=== PATIENT | male | born 1955 | race Caucasian/White ===

== ENCOUNTER → 2016-12-14 | Outpatient (CLI) | payer BC ==
[~2016-12-14] MED LIST: NAPR375T PO; OXYC-533 PO
--- NOTE | 2016-12-14 09:26 | DI ---
Indication: ITS.REASON: M54.5 LOW BACK PAIN with bilateral leg numbness PROCEDURE: MRI LUMBAR SPINE W/O CONTRAST: Encounter: Initial Comparison: None Technique: Multiplanar multisequence MR imaging of the lumbar spine was performed without contrast. Findings: Alignment of the lumbar spine is straightened with some loss of the normal lumbar lordosis. Vertebral body heights are maintained. No acute fractures. Conus medullaris terminates normally at L1. Paraspinal soft tissues show bilateral renal cysts. Segmental analysis: L1-L2: Central disk extrusion extending usp up the L1 vertebra facet disease contributing to mild central canal stenosis. No neural foraminal stenosis. L2-L3: Moderate central disk protrusion with an annular tear and high intensity zone with degenerative facet disease causing severe central canal stenosis. Mild left neural foraminal narrowing. No right foraminal stenosis. L3-L4: Right central disk extrusion extending along the right lateral recess with degenerative facet disease causing severe central canal stenosis and compression of the thecal sac. There is also disk protrusion impressing on the exiting right L3 nerve root with severe neural foraminal stenosis. Mild to moderate left neural foraminal stenosis. L4-L5: Broad-based disk bulge with a superimposed central disk extrusion with degenerative facet disease is contributes to severe central canal stenosis. Mild right and moderate left neural foraminal stenosis. There is some disk material abutting the exiting left L4 nerve root. L5-S1: Central disk protrusion superimposed on the broad-based disk bulge contributes to mild central canal stenosis. Degenerative facet disease resulting in moderate right and mild left neural foraminal stenosis. Impression: Severe degenerative disk disease as above with large disk extrusions resulting in severe central canal stenosis. Spinal surgical consultation is recommended. .
== END ==
LOC: IMA 08:10
PROVIDERS: ATTEND Family Medicine
DX: M48.06 Spinal stenosis, lumbar region (principal); M48.07 Spinal stenosis, lumbosacral region; M47.26 Other spondylosis with radiculopathy, lumbar region; M51.16 Intervertebral disc disorders with radiculopathy, lumbar region; M51.17 Intervertebral disc disorders with radiculopathy, lumbosacral region; M54.5 Low back pain

== ENCOUNTER 2017-01-07 05:54 | Day surgery (SDC) | payer BC ==
[~2017-01-07] VITALS: Ht 181.6 cm; Wt 128.8 kg
[~2017-01-07 05:54] MED LIST changes: +CHOL100018 PO; +GLUC100015 PO; +MULT-933 PO; -NAPR375T PO; -OXYC-533 PO
--- OUTSIDE RECORDS SUMMARY | 2017-01-07 05:58 | XMS REPORT | Continuity of Care Document ---
Demographics Preferred Language Unknown Marital Status Unknown Holiness Affiliation Unknown Race Unknown Ethnic Group Unknown Author Author [facility] Organization [facility] Address Unknown Phone Unavailable Allergies Active Description Code Type Severity Reaction Onset Reported/Identified Relationship to Patient Clinical Status Yes No Known Medication Allergies NKMA N/A N/A 12/25/2014 Medications Problems Procedures Results Encounters ACCT No. Visit Date/Time Discharge Status Pt. Type Provider Facility Loc./Unit Complaint [id number] 07/14/2016 14:06:00 Document Registration
--- OUTSIDE RECORDS SUMMARY | 2017-01-07 05:58 | XMS REPORT | Continuity of Care Document ---
Author Author [facility] Organization [facility] Address Unknown Phone Unavailable Support Name Relationship Address Phone EBENEZER SUMNER MD Caregiver [address] [place] [address] [place] [phone] KANNAN LUJAN MD Caregiver [address] [place] [address] [place] [phone] MALVIN LOBATO MD Caregiver [address] [place] [address] [place] [phone] MILLY PRUITT Next Of Kin [address] [place] [address] Insurance Providers Payer Name Policy Number Subscriber Name Relationship [employer] [id number] Elie Pruitt 19 Self Advance Directives Directive Response Recorded Date/Time Advanced Directives Type None 11/04/14 3:18am Problems Medical Problems Problem Onset Date Status RUQ pain Unknown Active Cholelithiasis Unknown Active RUQ pain Unknown Active Medications Medication Dose Route Sig Days/Qty Instructions Order Date Discontinued Date Status Naproxen Sodium 1 - 2 Tab PO NEEDED 02/24/10 Active Oxycodone HCl/Acetaminophen 5 Mg PO Q4H PRN PAIN 30 Qty Take 1 tablet, by mouth, every 4 hours as needed for pain. 11/04/14 Active Ondansetron 4 Mg PO Q6H/0300,0900,1500,2100 For NAUSEA &/OR VOMITING 15 Qty 11/04/14 Active Tramadol HCl 50 Mg PO Q6H/0300,0900,1500,2100 For PAIN 30 Qty Take 1 tablet, by mouth, every 6 hours. 11/04/14 Active Social History Social History Problem Response Recorded Date/Time Chewing Tobacco Status No 11/04/2014 3:25am Hx Substance Use No 11/04/2014 3:25am Hx Alcohol Use Y social 11/04/2014 3:25am Query Response Start Date Stop Date Smoking Status Never smoker Hospital Discharge Instructions No hospital discharge instructions. Plan of Care No plan of care. Functional Status Query Response Date Recorded Physical Hygiene Self November 04, 2014 3:25am Disabilities Visual November 04, 2014 3:25am Devices Used Glasses November 04, 2014 3:25am Dressing Self November 04, 2014 3:25am Ambulation Self November 04, 2014 3:25am Diet Self November 04, 2014 3:25am Mental Status Alert Oriented November 04, 2014 6:05am Disabilities Visual November 04, 2014 3:25am Devices Used Glasses November 04, 2014 3:25am Physical Hygiene Self November 04, 2014 3:25am Dressing Self November 04, 2014 3:25am Ambulation Self November 04, 2014 3:25am Diet Self November 04, 2014 3:25am Allergies, Adverse Reactions, Alerts Allergen Type Severity Reaction Status Last Updated No Known Drug Allergies Allergy Unknown NONE Active 02/24/10 Immunizations Name Given Type Hx Influenza Vaccination No Historical Hx Pneumococcal Vaccination No Historical Hx Influenza Vaccination No Historical Hx Tetanus Diptheria N UNKNOWN Historical Vital Signs Acute Vital Signs Vital Response Date/Time Temperature (Fahrenheit) 98.9 deg F (96.8 - 99.1) Temperature (Calculated Celsius) 37.55596 degrees C (36.0 - 37.3) Pulse Rate (adult) 76 bpm (60 - 100) Respiratory Rate 16 breaths/min (10 - 20) O2 Sat by Pulse Oximetry 100 % (90 - 100) Blood Pressure 128/80 mm Hg Height 6 ft 0 in Weight 286 lb Body Mass Index 38.0 kg/m^2 Results Test Source Date Result Interp. Ref. Range Comments Alanine Aminotransferase (ALT/SGPT) November 04, 2014 4:07am 65 U/L N 21 -72 Albumin November 04, 2014 4:07am 4.2 G/DL N 3.5-5.0 Albumin/Globulin Ratio November 04, 2014 4:07am 1.4 RATIO N 1.1-2.2 Alkaline Phosphatase November 04, 2014 4:07am 108 U/L N 38-126 Amylase Level November 04, 2014 4:07am 69 U/L N 30-110 Anion Gap November 04, 2014 4:07am 11 MEQ/L N 5-15 Aspartate Amino Transf (AST/SGOT) November 04, 2014 4:07am 34 U/L N 17- 59 BUN/Creatinine Ratio November 04, 2014 4:07am 29 RATIO H 6-26 Basophils # (Auto) November 04, 2014 4:07am 0.0 T/MM3 N 0-0.2 Basophils (%) (Auto) November 04, 2014 4:07am 0.3 % N 0-2 Blood Urea Nitrogen November 04, 2014 4:07am 23.0 MG/DL H 9-20 Calcium Level November 04, 2014 4:07am 9.9 MG/DL N 8.4-10.2 Calculated Osmolality November 04, 2014 4:07am 276 MOSM/KG N 261-280 Carbon Dioxide Level November 04, 2014 4:07am 26 MEQ/L N 22-30 Chemistry Specimen Hemolysis November 04, 2014 4:07am < 15 0-25 0-25 : No Hemolysis.26-70: Slight Hemolysis - can falsely elevate K and Urine Protein. 71-285: Moderate Hemolysis - can falsely elevate K, Troponin I, CA 19-9, PTH, CSF GLucose, and Urine Protein, and can falsely decrease Phenytoin. 286-999: Gross Hemolysis - can falsely elevate K, Troponin I, CA 19-9, PTH, CSF Glucose, and Urine Protine, and can falsely decrease Phenytoin. Recommend specimen recollection. Chloride Level November 04, 2014 4:07am 104 MEQ/L N 98-107 Creatinine November 04, 2014 4:07am 0.8 MG/DL N 0.8-1.5 Eosinophils # (Auto) November 04, 2014 4:07am 0.2 T/MM3 N 0-0.5 Eosinophils (%) (Auto) November 04, 2014 4:07am 2.1 % N 0-4 Globulin November 04, 2014 4:07am 3.0 G/DL N 2.4-3.6 Glomerular Filtration Rate Calc November 04, 2014 4:07am 99 - Glucose Level November 04, 2014 4:07am 125 MG/DL H 75-110 Hematocrit November 04, 2014 4:07am 46.3 % N 41-53 Hemoglobin November 04, 2014 4:07am 16.4 GM/DL N 13.5-17.5 Icterus Index November 04, 2014 4:07am < 2 0-7 Immature Granulocyte # (Auto) November 04, 2014 4:07am 0.02 T/MM3 N 0.00 -0.03 Immature Granulocyte % (Auto) November 04, 2014 4:07am 0.3 % N 0.0-0.5 Lab Scanned Report November 16, 2011 10:01pm LAB TEST FORM REQUEST [id number] - Lipase November 04, 2014 4:07am 85 U/L N 23-300 Lymphocytes # (Auto) November 04, 2014 4:07am 2.7 T/MM3 N 1-4.8 Lymphocytes (%) (Auto) November 04, 2014 4:07am 34.8 % N 23-45 Mean Corpuscular Hemoglobin November 04, 2014 4:07am 30.9 UUG N 26-34 Mean Corpuscular Hemoglobin Concent November 04, 2014 4:07am 35.4 GM/DL N 31-37 Mean Corpuscular Volume November 04, 2014 4:07am 87.4 UM3 N 80-100 Mean Platelet Volume November 04, 2014 4:07am 11.4 UM3 N 9.4-12.4 Monocytes # (Auto) November 04, 2014 4:07am 0.7 T/MM3 N 0-0.8 Monocytes (%) (Auto) November 04, 2014 4:07am 8.7 % N 0-9.0 Neutrophils # (Auto) November 04, 2014 4:07am 4.2 T/MM3 N 1.8-7.7 Neutrophils (%) (Auto) November 04, 2014 4:07am 53.8 % N 33-66 Platelet Count November 04, 2014 4:07am 131 T/MM3 N 130-400 Potassium Level November 04, 2014 4:07am 4.2 MEQ/L N 3.6-5 RDW Standard Deviation November 04, 2014 4:07am 39.8 FL N 36.9-50.2 Red Blood Count November 04, 2014 4:07am 5.30 M/MM3 N 4.50-5.90 Sodium Level November 04, 2014 4:07am 141 MEQ/L N 134-144 Total Bilirubin November 04, 2014 4:07am 1.50 MG/DL H 0.20-1.30 Total Protein November 04, 2014 4:07am 7.2 G/DL N 6.3-8.2 Turbidity November 04, 2014 4:07am < 20 0-20 Urine Bilirubin November 16, 2011 9:43am Negative - Urine Blood November 16, 2011 9:43am Negative - Urine Collection Type November 16, 2011 9:43am Voided - Urine Color November 16, 2011 9:43am Yellow - Urine Glucose (UA) November 16, 2011 9:43am Negative - Urine Ketones November 16, 2011 9:43am Negative - Urine Leukocyte Esterase November 16, 2011 9:43am Negative - Urine Microscopic Not Indicated November 16, 2011 9:43am Not indicated - Urine Nitrite November 16, 2011 9:43am Negative - Urine Protein November 16, 2011 9:43am Negative - Urine Specific [place] November 16, 2011 9:43am 1.010 L - Urine Turbidity November 16, 2011 9:43am Clear - Urine Urobilinogen November 16, 2011 9:43am Normal EU/DL - Urine pH November 16, 2011 9:43am 7.0 - White Blood Count November 04, 2014 4:07am 7.7 T/MM3 N 4.5-11.0 Procedures No known history of procedures. Encounters Encounter Location Date/Time Registered Emergency Room [facility] 11/04/14 3:11am Recent Diagnosis
--- OUTSIDE RECORDS SUMMARY | 2017-01-07 05:58 | XMS REPORT | Referral Summary ---
Author Organization Unknown Address Unknown Phone Unavailable Care Team Providers Care Buffing Wheel Former Automatic Name Role Phone Disha Macias Primary Care Physician [phone] Encounter [facility] [id number] Date(s): 01/23/15 - 01/23/15 [facility], [address] [place] [address]- [place] Discharge Diagnosis: Encounter for change or removal of drains Discharge Diagnosis: H/O acute pancreatitis Discharge Diagnosis: History of common bile duct surgery Discharge Disposition: Home or Self Care Attending Physician: Elie Kaba MD Admitting Physician: Elie Kaba MD Referring Physician: Ean Macias MD Vital Signs Most recent to 1 oldest [Reference Range]: Temperature Tympanic 36.0 degC [36.6-38.1 degC] *LOW* (01/23/15 9:38 AM) Problem List Condition Effective Dates Status Health Status Informant Acute Active pain(Confirmed) Alteration in Active nutrition(Confirmed) 1 At risk for activity Active intolerance(Confirme d)2 At risk for Active infection(Confirmed) 3 At risk of pressure Active sore(Confirmed) Fluid Active imbalance(Confirmed) 4 Impaired gas Active exchange(Confirmed)5 Impaired skin Active integrity(Confirmed) 6 Obesity(Confirmed) Active patient 1Problem added automatically by system based on initiation of Alteration in Nutrition Plan of Care 2Problem added automatically by system based on initiation of At Risk for Activity Intolerance Plan of Care 3Problem added automatically by system based on initiation of At Risk for Infection in Nutrition Plan of Care 4Problem added automatically by system based on initiation of Fluid Volume Imbalance Plan of Care 5Problem added automatically by system based on initiation of Impaired Gas Exchange Plan of Care 6Problem added automatically by system based on initiation of Impaired Skin Integrity Plan of Care Allergies, Adverse Reactions, Alerts No Known Medication Allergies Medications Aleve 220 mg, Oral, q8hr, as needed for pain, 0 Refill(s) Start Date: 12/27/14 Status: Ordered oxyCODONE-acetaminophen 10 mg-325 mg oral tablet 1-2 tabs, Oral, q4hr, Pain Moderate (4-6), 0 Refill(s) Start Date: 01/04/15 Status: Ordered traMADol 50 mg oral tablet 1 tabs, Oral, q4hr, as needed for pain, 0 Refill(s) Start Date: 12/25/14 Status: Ordered Results No data available for this section Immunizations No data available for this section Procedures Procedure Date Related Diagnosis Body Site Laparotomy Exploratory1 12/28/14 Cholangiopancreatography Retrograde Endo2 12/27/14 Laparoscopic cholecystectomy 12/26/14 1auto-populated from documented surgical case 2auto-populated from documented surgical case Social History Social History Type Response Smoking Status Never smoker Assessment and Plan Extracted from: Title: Office Visit Note Author: Elie Kaba MD Date: 01/23/15 Assessment/Plan Encounter for change or removal of drains Ordered: Postoperative Est 88489 H/O acute pancreatitis Ordered: Postoperative Est [id number] History of common bile duct surgery Ordered: Postoperative Est 17970 Plan: Patient has underwent 2 prior T-tube cholangiograms that were within normal limits with no evidence for retained stone. Is now out greater than a month from his common bile duct exploration. It was my recommendation to the patient that we remove his remaining drains. EMMA drain and T-tube were removed without difficulty, sterile dressings applied. Patient given typical instructions following T-tube removal. He is to follow-up with me if any further concerns should arise or if the drainage fails to resolve on its own behalf over the next 48-72 hours. Paperwork was filled out for short-term disability. 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
--- OUTSIDE RECORDS SUMMARY | 2017-01-07 05:58 | XMS REPORT | Referral Summary ---
Author Author [facility] Organization [facility] Address Unknown Phone Unavailable Care Team Providers Care Canal Superintendent Name Role Phone Disha Macisa Primary Care Physician [phone] Encounter [facility] [id number] Date(s): 01/23/15 - 01/23/15 [facility] [address] [place] [address] [place] [address] Discharge Diagnosis: Encounter for change or removal of drains Discharge Diagnosis: H/O acute pancreatitis Discharge Diagnosis: History of common bile duct surgery Discharge Disposition: 01-Home or Self Care Attending Physician: Elie Kaba [...] or removal of drains Ordered: Postoperative Est 05750 H/O acute pancreatitis Ordered: Postoperative Est 44891 History of common bile duct surgery Ordered: Postoperative Est [id number] Plan: Patient has underwent 2 prior T-tube [...] 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
--- OUTSIDE RECORDS SUMMARY | 2017-01-07 05:58 | XMS REPORT | Continuity of Care Document ---
Author Author De Paz [facility] LIVE Organization [facility] LIVE Address Unknown Phone Unavailable Support Name Relationship Address Phone EBENEZER SUMNER MD Caregiver [address] [place] [address] [phone] ELIE WANG FACS CWS Caregiver [address] [place] [address] [place] [address] [phone] MILLY PRUITT Next Of Kin [address] [place] [address] Insurance Providers Payer Name Policy Number Subscriber Name Relationship [place] [employer] [id number] Elie Pruitt 19 Self Advance Directives Directive Response Recorded Date/Time Dr Morales Resuscitation Status Full Code 12/26/14 11:28am Resuscitation Documents on File No 12/26/14 12:00pm Problems Medical Problems Problem Onset Date Status RUQ pain Unknown Active Cholelithiasis Unknown Active RUQ pain Unknown Active Medications Medication Dose Route Sig Days/Qty Instructions Order Date Discontinued Date Status Naproxen Sodium 1-2 Tab PO NEEDED 02/24/10 Active Tramadol HCl 50 Mg PO Q6H/0300,0900,1500,2100 For PAIN 30 Qty Take 1 tablet, by mouth, every 6 hours. 11/04/14 12/27/14 Discontinued Oxycodone HCl/Acetaminophen 1-2 Tab PO EVERY 5 HOURS PRN PAIN 40 Qty Active Ondansetron 4 Mg PO Q6H/0300,0900,1500,2100 For NAUSEA 10 Qty 12/27/14 Active Social History Social History Problem Response Recorded Date/Time Hx Substance Use No 11/04/2014 3:25am Hx Alcohol Use Y social 11/04/2014 3:25am Has the pt used tobacco in the last 12 months No 12/26/2014 12:01pm Tobacco Usage none 11/04/2014 7:22am Query Response Start Date Stop Date Smoking Status Never smoker Hospital Discharge Instructions No hospital discharge instructions. Plan of Care No plan of care. Functional Status Query Response Date Recorded Physical Hygiene Self November 04, 2014 3:25am Physical Hygiene Self November 04, 2014 3:25am Allergies, Adverse Reactions, Alerts Allergen Type Severity Reaction Status Last Updated No Known Drug Allergies Allergy Unknown NONE Active 12/26/14 Immunizations Name Given Type Hx Influenza Vaccination No Historical Hx Pneumococcal Vaccination No Historical Hx Influenza Vaccination No Historical Hx Tetanus Diptheria N UNKNOWN Historical Vital Signs Acute Vital Signs Vital Response Date/Time Temperature (Fahrenheit) 97.6 deg F (96.8 - 99.1) Temperature (Calculated Celsius) 36.54287 degrees C (36.0 - 37.3) Temperature Source Oral Pulse Rate (adult) 77 bpm (60 - 100) Respiratory Rate 14 breaths/min (10 - 20) Height (Feet) 6 feet Height (Inches) 0.00 inches Height 6 ft 0 in Weight 285 lb Body Mass Index 38.0 kg/m^2 Results Test Source Date Result Interp. Ref. Range Comments Alanine Aminotransferase (ALT/SGPT) December 27, 2014 4:28am 438 U/L H 21- 72 Albumin December 27, 2014 4:28am 3.4 G/DL L 3.5-5.0 Albumin/Globulin Ratio December 27, 2014 4:28am 1.0 RATIO L 1.1-2.2 Alkaline Phosphatase December 27, 2014 4:28am 136 U/L H 38-126 Amylase Level December 27, 2014 4:28am 89 U/L N 30-110 COMMENT FROM THIS AM LAB DRAW Anion Gap December 27, 2014 4:28am 16 MEQ/L H 5-15 Aspartate Amino Transf (AST/SGOT) December 27, 2014 4:28am 287 U/L DH 17- 59 BUN/Creatinine Ratio December 27, 2014 4:28am 20 RATIO N 6-26 Basophils # (Auto) December 27, 2014 8:00am 0.0 T/MM3 N 0-0.2 COMMENT FROM THIS AM LAB DRAW Basophils (%) (Auto) December 27, 2014 8:00am 0.1 % N 0-2 COMMENT FROM THIS AM LAB DRAW Blood Urea Nitrogen December 27, 2014 4:28am 16.0 MG/DL N 9-20 Calcium Level December 27, 2014 4:28am 9.3 MG/DL N 8.4-10.2 Calculated Osmolality December 27, 2014 4:28am 266 MOSM/KG N 261-280 Carbon Dioxide Level December 27, 2014 4:28am 18 MEQ/L L 22-30 Chemistry Specimen Hemolysis December 27, 2014 4:28am 51 H 0-25 0-25: No Hemolysis.26-70: Slight Hemolysis - can falsely elevate K and Urine Protein. 71-285: Moderate Hemolysis - can falsely elevate K, Troponin I, CA 19-9, PTH, CSF GLucose, and Urine Protein, and can falsely decrease Phenytoin. 286-999: Gross Hemolysis - can falsely elevate K, Troponin I, CA 19-9, PTH, CSF Glucose, and Urine Protine, and can falsely decrease Phenytoin. Recommend specimen recollection. Chloride Level December 27, 2014 4:28am 102 MEQ/L N 98-107 Conjugated Bilirubin December 27, 2014 4:28am 2.90 MG/DL H 0.00-0.30 Creatinine December 27, 2014 4:28am 0.8 MG/DL N 0.8-1.5 Eosinophils # (Auto) December 27, 2014 8:00am 0.0 T/MM3 N 0-0.5 COMMENT FROM THIS AM LAB DRAW Eosinophils (%) (Auto) December 27, 2014 8:00am 0.0 % N 0-4 COMMENT FROM THIS AM LAB DRAW Globulin December 27, 2014 4:28am 3.4 G/DL N 2.4-3.6 Glomerular Filtration Rate Calc December 27, 2014 4:28am 99 - Glucose Level December 27, 2014 4:28am 157 MG/DL H 75-110 Hematocrit December 27, 2014 8:00am 41.7 % N 41-53 COMMENT FROM THIS AM LAB DRAW Hemoglobin December 27, 2014 8:00am 14.3 GM/DL N 13.5-17.5 COMMENT FROM THIS AM LAB DRAW Icterus Index December 27, 2014 4:28am 2 N 0-7 Immature Granulocyte # (Auto) December 27, 2014 8:00am 0.00 T/MM3 N 0.00- 0.03 COMMENT FROM THIS AM LAB DRAW Immature Granulocyte % (Auto) December 27, 2014 8:00am 0.0 % N 0.0-0.5 COMMENT FROM THIS AM LAB DRAW Lab Scanned Report November 16, 2011 10:01pm LAB TEST FORM REQUEST [id number] - Lipase December 27, 2014 4:28am 87 U/L N 23-300 COMMENT FROM THIS AM LAB DRAW Lymphocytes # (Auto) December 27, 2014 8:00am 1.0 T/MM3 N 1-4.8 COMMENT FROM THIS AM LAB DRAW Lymphocytes (%) (Auto) December 27, 2014 8:00am 12.6 % L 23-45 COMMENT FROM THIS AM LAB DRAW Mean Corpuscular Hemoglobin December 27, 2014 8:00am 29.9 UUG N 26-34 COMMENT FROM THIS AM LAB DRAW Mean Corpuscular Hemoglobin Concent December 27, 2014 8:00am 34.3 GM/DL N 31-37 COMMENT FROM THIS AM LAB DRAW Mean Corpuscular Volume December 27, 2014 8:00am 87.1 UM3 N 80-100 COMMENT FROM THIS AM LAB DRAW Mean Platelet Volume December 27, 2014 8:00am 11.8 UM3 N 9.4-12.4 COMMENT FROM THIS AM LAB DRAW Monocytes # (Auto) December 27, 2014 8:00am 0.6 T/MM3 N 0-0.8 COMMENT FROM THIS AM LAB DRAW Monocytes (%) (Auto) December 27, 2014 8:00am 7.2 % N 0-9.0 COMMENT FROM THIS AM LAB DRAW Neutrophils # (Auto) December 27, 2014 8:00am 6.5 T/MM3 N 1.8-7.7 COMMENT FROM THIS AM LAB DRAW Neutrophils (%) (Auto) December 27, 2014 8:00am 80.1 % H 33-66 COMMENT FROM THIS AM LAB DRAW Platelet Count December 27, 2014 8:00am 142 T/MM3 N 130-400 COMMENT FROM THIS AM LAB DRAW Potassium Level December 27, 2014 4:28am 4.2 MEQ/L N 3.6-5 RDW Standard Deviation December 27, 2014 8:00am 42.6 FL N 36.9-50.2 COMMENT FROM THIS AM LAB DRAW Red Blood Count December 27, 2014 8:00am 4.79 M/MM3 N 4.50-5.90 COMMENT FROM THIS AM LAB DRAW Sodium Level December 27, 2014 4:28am 136 MEQ/L N 134-144 Total Bilirubin December 27, 2014 4:28am 6.90 MG/DL H 0.20-1.30 Total Protein December 27, 2014 4:28am 6.8 G/DL N 6.3-8.2 Turbidity December 27, 2014 4:28am < 20 0-20 Unconjugated Bilirubin December 27, 2014 4:28am 1.60 MG/DL H 0.00-1.10 Urine Bilirubin November 16, 2011 9:43am Negative [...] 16, 2011 9:43am Negative - Urine Specific [place] November 16, 2011 9:43am 1.010 L - Urine Turbidity November 16, 2011 9:43am Clear - Urine Urobilinogen November 16, 2011 9:43am Normal EU/DL - Urine pH November 16, 2011 9:43am 7.0 - White Blood Count December 27, 2014 8:00am 8.1 T/MM3 N 4.5-11.0 COMMENT FROM THIS AM LAB DRAW Name: ELIE PRUITT Unit #: [id number] : 1955 Sex: M Loc / Svc: SRG DOS: Signed Report #: [id number] DIAGNOSTIC IMAGING REPORT TYPE OF EXAM: RF CHOLANGIOGRAM OPERATIVE Dictated By: ZUNILDA CRUZ MD Indication: ITS.REASON: CHOLECYSTECTOMY RF CHOLANGIOGRAM OPERATIVE: Comparison: CT abdomen and pelvis dated November 04, 2014 Findings: 26 fluoroscopic spot images are submitted from an intraoperative cholangiogram. Images demonstrate injection of contrast into the cystic duct with filling of the common duct and intrahepatic biliary tree. These are markedly dilated. On initial images there is no contrast reaching the duodenum and an abrupt cut off of contrast at the distal common duct. Later there is filling of the gallbladder with filling defects consistent with the known gallstones. Contrast is never definitely seen in the duodenum. Impression: Intraoperative fluoroscopy as above. Please refer to the dictated operative note for further details. . Procedures Procedure Status Date Provider(s) ROUTINE VENIPUNCTURE completed 11/04/14 X-RAY EXAM SERIES ABDOMEN completed 11/04/14 CT ABD & PELV W/CONTRAST completed 11/04/14 COMPREHEN METABOLIC PANEL completed 11/04/14 ASSAY OF AMYLASE completed 11/04/14 ASSAY OF LIPASE completed 11/04/14 COMPLETE CBC W/AUTO DIFF WBC completed 11/04/14 HYDRATE IV INFUSION ADD-ON completed 11/04/14 HYDRATE IV INFUSION ADD-ON completed 11/04/14 THER/PROPH/DIAG INJ IV PUSH completed 11/04/14 TX/PRO/DX INJ NEW DRUG ADDON completed 11/04/14 TX/PRO/DX INJ NEW DRUG ADDON completed 11/04/14 EMERGENCY DEPT VISIT completed 11/04/14 904032"INJECTION, PANTOPRAZOLE SODIUM, PER VIAL" completed 11/04/14 [id number]"INJECTION, HYDROMORPHONE, UP TO 4 MG" completed 11/04/14 [id number]"INJECTION, ONDANSETRON HYDROCHLORIDE, PER 1 MG" completed 11/04/14 [id number]"INFUSION, NORMAL SALINE SOLUTION , 1000 CC" completed 11/04/14 [id number]"INFUSION, NORMAL SALINE SOLUTION , 250 CC" completed 11/04/14 [id number]"LOW OSMOLAR CONTRAST MATERIAL, 300-399 MG/ML IODINE C completed Laparoscopic cholecystectomy completed 12/26/14 ELIE WANG MD, FACS, CWS Encounters Encounter Location Date/Time Departed Emergency Room [facility] 11/04/14 3:11am
--- OUTSIDE RECORDS SUMMARY | 2017-01-07 05:58 | XMS REPORT | Continuity of Care Document ---
Author Author De Paz [facility] LIVE Organization [facility] LIVE Address Unknown Phone Unavailable Support Name Relationship Address Phone EBNEEZER SUMNER MD Caregiver [address] [place], [place] [phone] ELIE WANG FACS CWS Caregiver [address] [place] [address] [place] [address] [phone] MILLY PRUITT Next Of Kin [address] [place] [address] Insurance Providers Payer Name Policy Number Subscriber Name Relationship [employer] [id number] Elie Pruitt 19 Self Advance Directives Directive [...] Smoking Status Never smoker Hospital Discharge Instructions Instructions: Care Instructions: Reason for Hospitalization: lap michael common duct exploration I was in the hospital because (patient own words): "GALLBLADDER" Discharge Diet: NPO till done with ERCP Discharge Activity: as tolerated No lifting more than 25 poinds for 4 weeks May Shower Follow Up Appointments: Report to [facility] admissions at 11:30 am today, being admitted to Dr. Keven Champagne for ERCP. January 01, 2015 at 2:[address] Wang Patient Instructions: Keep a record of time and amount of drainage twice a day. Wound/Incision Care: May shower, Leave glue in place, do not pick or rub it off. Notify Physician If: Increasing pain. Fever greater than 101.5. Redness or drainage from the incision. Increasing drainage in the EMMA drains or if the drainage turns bright red or greenish brown. Expect the drainage to become more clear yellow over the next several days. Condition at time of discharge: Fair Good Condition at time of discharge: Good Plan of Care Discharge Date 12/27/14 9:55am Disposition 01 DISCHARGED HOME, SELF-CARE Instructions/Education Provided Cholecystectomy -- Laparoscopic Surgery Prescriptions See Medications Section Functional Status Query Response Date Recorded Physical [...] F (96.8 - 99.1) Temperature (Calculated Celsius) 36.97091 degrees C (36.0 - 37.3) Temperature Source [...] 16, 2011 10:01pm LAB TEST FORM REQUEST [id number] - Lipase December 27, 2014 4:28am 87 [...] 16, 2011 9:43am Negative - Urine Specific [place] November 16, 2011 9:43am 1.010 L - Urine Turbidity November 16, 2011 9:43am Clear - Urine Urobilinogen November 16, 2011 9:43am Normal EU/DL - Urine pH November 16, 2011 9:43am 7.0 - White Blood Count December 27, 2014 8:00am 8.1 T/MM3 N 4.5-11.0 COMMENT FROM THIS AM LAB DRAW Name: ELIE PRUITT Unit #: [id number] : 1955 Sex: M Loc / Svc: SRG DOS: Signed Report #: [id number] DIAGNOSTIC IMAGING REPORT TYPE OF EXAM: RF [...] ADDON completed 11/04/14 EMERGENCY DEPT VISIT completed 11/04/14249100"INJECTION, PANTOPRAZOLE SODIUM, PER VIAL" completed 11/04/14400048"INJECTION, HYDROMORPHONE, UP TO 4 MG" completed 11/04/14849860"INJECTION, ONDANSETRON HYDROCHLORIDE, PER 1 MG" completed 11/04/14949246"INFUSION, NORMAL SALINE SOLUTION , 1000 CC" completed 11/04/14 416492"INFUSION, NORMAL SALINE SOLUTION , 250 CC" completed 11/04/14 445805"LOW OSMOLAR CONTRAST MATERIAL, 300-399 MG/ML IODINE C completed Laparoscopic cholecystectomy completed 12/26/14 ELIE WANG MD, FACS, CWS Encounters Encounter Location Date/Time Discharged Inpatient [facility] 12/26/14 11:01am Departed Emergency Room [facility] 11/04/14 3:11am
[2017-01-07 06:40] VITALS: Ht 181.6 cm; Wt 128.8 kg
[2017-01-07] MEDS ORDERED: LR 1,000 ML IV SCH (07:00)
[2017-01-07] MEDS ORDERED: LIDOCAINE 1% (10mg/ml) 2ml SDV INJ ONE (07:00)
--- NOTE | 2017-01-07 07:02 | ANESPREOP ---
Anesthesia Record Date and Time DATE: 01/07/17 TIME: 07:00 Pre-Op Diagnosis screening Proposed Surgical Procedure COLONOSCOPY NPO since: mn Allergies: Coded Allergies: No Known Drug Allergies (Verified Allergy, Unknown, NONE, 01/07/17) Ht/Wt/BMI Height: 5 ' 11.50 " Weight: 128.800 kg BMI: 39.1 kg/m2 Medications Inpatient Medications Current Medications Medications (Trade) Dose Ordered Sig/Stevenson Start Time Stop Time Status Last Admin Dose Admin Lactated Ringer's (Lactated Ringers) 1,000 ml @ 50 mls/hr Q20H 01/07/17 07:00 Cholecalciferol (Vitamin D3) 1,000 Unit Tablet, 1 TAB PO DAILY, (Reported) Last Taken: on 01/04/17 Glucosamine Sulfate 2Kcl (Glucosamine) 1,000 Mg Tablet, 1 TAB PO DAILY, (Reported) Last Taken: on 01/04/17 Multivitamin (Multi-Day Vitamins) 1 Each Tablet, 1 TAB PO DAILY, (Reported) Last Taken: on 01/04/17 Currently on Beta Shun: No Medical/Surgical History Anesthesia PMH: Reports: *Diabetes (DIET CONTROLLED, newly diagnosed ), Pneumonia (HX: 2000), Denies: *Angina, *Hypertension, *CT, Anesthesia Reactions (NO AIRWAY ISSUES, AGITATED WHILE WAKING AT TIMES), Arthritis, Asthma, Blood Transfusion Reac, CHF, COPD, CVA/Stroke/TIA, Cancer, Clotting Problems, Glaucoma , Hiatal Hernia, Malignant Hyperthermia, Pacemaker, Reflux, Seizures, Tuberculosis Has pt. smoked today?: No Use Chewing Tobacco?: No Second Hand Exposure: No Substance Use Type: does not use Alcohol Intake: none Past Surgical History Orthopedic Surgeries: Yes - BACK 2000 Abdominal Surgeries: Yes - CHOLECYSTECTOMY Genitourinary Surgeries: No Cardiac Surgeries: No Endocrine Surgeries: No Reproductive Surgeries: No Neurological Surgeries: No Ear Surgeries: No Nose Surgeries: No Throat Surgeries: No Other Surgeries: No Anesthesia Adverse Reactions: FOUND none Family Hx of Anesthesia Advers: none Pertinent Findings EKG Rhythm: Sinus Rhythm Physical Exam Respiratory: Bilat breath sounds equal, Lungs clear Cardiovascular: FOUND Regular rate, rhythm, FOUND No murmur Airway Assessment Mallampati Score: III Neck Extension: Fair Overall Assessment: No Airway Concerns ASA: 2 Plan Anesthesia Plan: TIVA Discussion Discussed risks/options/alternatives of anesthesia and questions answered. Patient consents. Nursing pain assessment noted. Attestation Statement Prior to the delivery of any anesthetic medication, I examined the patient, developed the plan, obtained the patient's consent and discussed the risk and benefits of the procedure with the patient/guardian. VANITA ESTES CRNA Jan 07, 2017 07:01
[2017-01-07] MEDS ORDERED: PROPOFOL 500mg 50 ML IV ONE (07:05)
[2017-01-07] MEDS ORDERED: LIDOCAINE 2% (20mg/ml) 5ml PF SDV ONE (07:05)
[2017-01-07 08:01] VITALS: BP 142/75; PULSE 68; RESP 16; TEMP 99.4; O2SAT 95
[2017-01-07 08:10] VITALS: BP 134/80; PULSE 66; RESP 18; O2SAT 94
[2017-01-07 08:20] VITALS: BP 127/71; PULSE 69; RESP 20; O2SAT 95
[2017-01-07 08:30] VITALS: BP 116/70; PULSE 67; RESP 24; O2SAT 96
[2017-01-07 08:40] VITALS: BP 136/97; PULSE 73; RESP 22; O2SAT 99
--- NOTE | 2017-01-07 08:56 | ANESPO ---
Post-Op Note Date 01/07/17 Time: 08:43 Status Pt Participated in Evaluation: Pt participated in person Vital Signs Date Time Temp Pulse Resp B/P Pulse Ox O2 Delivery O2 Flow Rate FiO2 01/07/17 08:40 73 22 136/97 99 Room Air 01/07/17 08:01 99.4 Respiratory Function: Airway patent Cardiovascular Function: Regular pulse Mental Status: Alert/oriented Pain Level Intensity: 0 Unable to Assess Pain Due To: Medicated/Sleeping Hydration: IV infusing Complications during Recovery None apparent Follow-Up Instructions Instructions Per Surgeon VANITA ESTES CRNA Jan 07, 2017 08:56
--- NOTE | 2017-01-07 23:04 | OPNOTEF ---
DATE OF PROCEDURE: 01/07/2017 SURGEON: Ean Macias MD PREOPERATIVE DIAGNOSIS Colorectal cancer surveillance. POSTOPERATIVE DIAGNOSES Colorectal cancer surveillance, moderate sigmoid diverticulosis. PROCEDURE: Colonoscopy. ANESTHESIA: TIVA. BRIEF HISTORY/INDICATIONS Mc is a 61-year-old male patient of mine who is due for a colonoscopy. We discussed different forms of colorectal cancer surveillance and decided to proceed with colonoscopy. For completeness please refer to office notes. FINDINGS Upon colonoscopy there was no evidence for angiodysplastic lesions, polyps or sheri malignancies. The patient was found to have moderate diverticulosis within the sigmoid colon region. NARRATIVE OF PROCEDURE After informed consent was obtained, the patient was brought to the endoscopy suite and placed on the table in the left lateral decubitus position. The patient subsequently underwent total intravenous anesthesia by the nurse security clerk per my request. Next, a digital rectal examination was performed. Normal sphincter tone. No rectal masses were appreciated. An Olympus colonoscope was inserted in the anus and advanced with the lumen of the colon under direct visualization at all times until the cecum was ascertained. Triangulation of the tenia coli, ileocecal valve and appendiceal lumen were all visualized. The scope was then slowly withdrawn, again maintaining visualization of the lumen at all times. As stated above, the entire colon was without evidence for angiodysplastic lesions, polyps or sheri malignancies. The patient was found to have moderate sigmoid diverticulosis. The scope continued to be withdrawn until it was brought forth back into the rectal vault. A J-maneuver was then performed. No worrisome perianal pathology was noted. The scope was allowed to straighten and was withdrawn through the anal verge. The patient tolerated the procedure without difficulty and was sent back to the preoperative area in stable condition. Secondary to the absence of findings upon this colonoscopy, the patient will not need to undergo a repeat colonoscopy until ten years from now unless new indications should arise. DESI
== END 2017-01-07 08:55 | disposition home or self-care (01) ==
LOC: NSC 05:54
PROVIDERS: ATTEND Family Medicine
DX: Z12.11 Encounter for screening for malignant neoplasm of colon (principal); K57.30 Diverticulosis of large intestine without perforation or abscess without bleeding; M54.16 Radiculopathy, lumbar region
CPT/HCPCS: 45378; 82948; J2704; J7120